=== PATIENT | female | born 1980 | race African-American/Black ===

== ENCOUNTER 2018-01-03 18:14 | Emergency (ER) | payer OTHER ==
[~2018-01-03] VITALS: Ht 172.7 cm; Wt 54.4 kg
--- NOTE | 2018-01-03 19:22 | NUR ---
Shift report given to warehouse worker 2nd shift RN.
--- NOTE | 2018-01-03 20:00 | NUR ---
pt [id number]. pt in no acute distress. came into ED w/ c/o headache and sob. pt in no respiratory distress, respirations are equal and unlabored. pt able to speak in clear and complete sentences. able to make needs known.
[2018-01-03 20:32] LABS: BASOPHILS # (AUTO) 0.1 K/uL (0.0-8.0); BASOPHILS % (AUTO) 0.9 % (0.0-2.0); EOSINOPHILS # (AUTO) 0.2 K/uL (0.0-0.7); HEMATOCRIT 38.4 % (31.2-41.9); LYMPHOCYTES # (AUTO) 2.4 K/uL (20.0-40.0); LYMPHOCYTES % (AUTO) 28.5 % (20.5-51.5); MEAN CORPUSCULAR HEMOGLOBIN 30.4 uug (24.7-32.8); MEAN CORPUSCULAR HGB CONC 34 g/dL (32.3-35.6); MEAN CORPUSCULAR VOLUME 89.7 fL (75.5-95.3); MONOCYTES # (AUTO) 0.5 K/uL (2.0-10.0); MONOCYTES % (AUTO) 6.1 % (0.0-11.0); NEUTROPHILS # (AUTO) 5.2 K/uL (1.8-8.9); NEUTROPHILS % (AUTO) 62.5 % (38.5-71.5); PLATELET COUNT (AUTO) 301 K/uL (179-408); RED BLOOD CELL COUNT(AUTO) 4.28 MIL/uL (3.63-4.92); WHITE BLOOD COUNT (AUTO) 8.4 K/uL (3.8-11.8)
[2018-01-03 20:37] LABS: *URINE HCG, QUAL NEGATIVE (NEGATIVE)
[2018-01-03 20:44] LABS: CREATININE 0.9 mg/dL (0.6-1.3); POTASSIUM 3.6 mmol/L (3.5-5.1)
[2018-01-03 20:50] LABS: BILIRUBIN,DIRECT 0.1 mg/dL (0.0-0.2); BILIRUBIN,TOTAL 0.3 mg/dL (0.2-1.0); TOTAL PROTEIN, SERUM 7.8 g/dL (6.4-8.2)
--- NOTE | 2018-01-03 22:00 | NUR ---
Patient discharged to home in stable conditon. Written and verbal after care instructions given. Patient verbalizes understanding of instructions. copy of lab results and CT results given per MD instructions and pt request. pt ambulated out of ED with steady and stable gait.
[2018-01-03 22:01] VITALS: BP 132/79
== END 2018-01-03 22:04 | disposition home or self-care (01) ==
LOC: ER 18:29 → EDSEX 18:29 → ER 22:04
DX: H53.2 Diplopia (principal)
CPT/HCPCS: 36415; 70030-TC; 70450; 84703; 85025; 85651; 85730; 93005; A4663

== ENCOUNTER → 2018-01-03 18:20 | Emergency (ER) | payer SELFPAY ==
--- NOTE | 2018-01-03 18:30 | NUR ---
Registration error, see [id number]
== END | disposition left against medical advice (07) ==
LOC: EDSEX → ER 18:20
DX: Z53.21 Procedure and treatment not carried out due to patient leaving prior to being seen by health care provider (principal)